=== PATIENT | male | born 1965 | race Caucasian/White ===

== ENCOUNTER 2022-12-16 10:59 | Observation (INO) | payer BC ==
[2022-12-16] MEDS ORDERED: Sodium Chloride 0.9% 300 ML IV ONE (11:06)
[2022-12-16] MEDS ORDERED: Sodium Chloride 0.9% 10 ML Syringe FLUSH PRN ×2 (11:06→17:48)
[2022-12-16] MEDS ORDERED: Aspirin 81 MG Tab.Chew PO ONE (11:11)
[2022-12-16 11:21] LABS: BASOPHILS ABSOLUTE AUTO 0.09 K/uL (0.00-0.10); EOSINOPHILS PERCENT AUTO 4.4 % (0.0-5.4); HEMATOCRIT 38.2 % (38.4-49.7); HEMOGLOBIN 12.7 g/dL (12.9-16.9); IMMATURE GRAN ABSOLUTE AUTO 0.04 K/uL (0.00-0.23); IMMATURE GRAN PERCENT AUTO 0.4 % (0.0-0.7); LYMPHOCYTES ABSOLUTE AUTO 2.74 K/uL (0.8-3.3); MEAN CORPUSCULAR HEMOGLOBIN 30.8 pg (31.6-35.5); MEAN CORPUSCULAR HGB CONC 33.2 g/dL (31.6-35.5); MEAN CORPUSCULAR VOLUME 92.7 fL (81.4-99.0); MONOCYTES ABSOLUTE AUTO 0.71 K/uL (0.20-0.90); MONOCYTES PERCENT AUTO 7.8 % (3.3-12.6); NEUTROPHILS ABSOLUTE AUTO 5.15 K/uL (1.0-7.6); NEUTROPHILS PERCENT AUTO 56.4 % (40.0-78.1); PLATELET COUNT,PLT 378 K/uL (130-375); RED BLOOD CELL COUNT 4.12 M/uL (4.14-5.76); WHITE BLOOD CELL COUNT,WBC 9.1 K/uL (3.2-11.0)
[2022-12-16 11:48] LABS: A/G RATIO 1.1 (1.2-2.2); ALANINE AMINOTRANSFERASE,ALT 46 U/L (12-78); ALBUMIN 3.3 g/dL (3.4-5.0); ALKALINE PHOSPHATASE 117 U/L (46-116); ANION GAP 11.9 mmol/L (5.0-14.0); ASPARTATE AMNIOTRANSFERASE,AST 30 U/L (15-37); BILIRUBIN TOTAL 0.3 mg/dL (0.2-1.0); BLOOD UREA NITROGEN,BUN 11 mg/dL (7-18); CALCIUM 8.1 mg/dL (8.5-10.1); CARBON DIOXIDE,CO2 24 mmol/L (21-32); CHLORIDE,CL 104 mmol/L (100-108); CREATININE 1.2 mg/dL (0.8-1.3); EST CRCL DRUG DOSING (CG) 58.37 mL/min; ESTIMATED GFR 70 mL/min (>60); GLUCOSE RANDOM 153 mg/dL (74-106); PROTEIN TOTAL,TP 6.4 g/dL (6.4-8.2); SODIUM,NA 140 mmol/L (140-148); TROPONIN I HIGH SENSITIVITY 4.9 pg/mL (<=60.3)
[2022-12-16] MEDS ORDERED: Morphine 4 MG/ML Syringe IVPUSH PRN (17:48)
[2022-12-16] MEDS ORDERED: Ondansetron 4 MG/2 ML SDV IV PRN (17:48)
[2022-12-16] MEDS ORDERED: Acetaminophen 325 MG Tab PO PRN (17:48)
[2022-12-16] MEDS ORDERED: Albuterol 0.083% 2.5 MG/3 ML Neb Soln NEB PRN (17:48)
[2022-12-16] MEDS ORDERED: Sennosides/Docusate Sodium 50-8.6 MG Tab PO PRN (17:48)
[2022-12-16] MEDS ORDERED: Nitroglycerin 0.4 MG Tab.SL SL PRN (17:48)
[2022-12-16] MEDS: Pantoprazole 40 MG Tab.CR PO SCH (18:13)
[2022-12-16] MEDS ORDERED: atorvaSTATin 20 MG Tab PO SCH (21:00)
[2022-12-16] MEDS ORDERED: Enoxaparin 40 MG/0.4 ML Syringe SUBCUT SCH (21:00)
[2022-12-17 06:11] LABS: CALCIUM 8.2 mg/dL (8.5-10.1); CREATININE 0.8 mg/dL (0.8-1.3); EST CRCL DRUG DOSING (CG) 87.55 mL/min; POTASSIUM,K 3.9 mmol/L (3.6-5.2); TROPONIN I HIGH SENSITIVITY 10.7 pg/mL (<=60.3)
[2022-12-17 06:12] LABS: ANION GAP 10.9 mmol/L (5.0-14.0)
[2022-12-17] MEDS: Pantoprazole 40 MG Tab.CR PO SCH (08:48)
[2022-12-17] MEDS ORDERED: Aspirin 81 MG Tab.Chew PO SCH ×2 (09:00)
[2022-12-17] MEDS ORDERED: Metoprolol Succinate 25 MG Tab.ER PO SCH (09:00)
[2022-12-17] MEDS ORDERED: Ticagrelor 90 MG Tab PO SCH (09:00)
[2022-12-17] MEDS ORDERED: Lisinopril 2.5 MG Tab PO SCH (09:00)
[2022-12-17] MEDS ORDERED: Metoprolol Succinate 50 MG Tab.ER PO SCH (13:00)
== END 2022-12-17 13:31 | disposition home or self-care (01) ==
LOC: JP.ED 10:59 → JP.ICU 17:06
PROVIDERS: ADMIT Hospitalist; ATTEND Internal Medicine
DX: R07.89 Other chest pain (principal); I25.10 Atherosclerotic heart disease of native coronary artery without angina pectoris; I25.2 Old myocardial infarction; I10 Essential (primary) hypertension; E78.00 Pure hypercholesterolemia, unspecified; F17.210 Nicotine dependence, cigarettes, uncomplicated; Z79.82 Long term (current) use of aspirin; Z95.1 Presence of aortocoronary bypass graft; Z79.899 Other long term (current) drug therapy; Z20.822 Contact with and (suspected) exposure to COVID-19
CPT/HCPCS: 36415; 78452; 80048; 80053; 84484; 85025; 85379; 87635; 93005; 93017; 93018; 96372; 99222; 99238; 99285; A9270; A9500; G0378; J1650; J3490; J7050; 93010; U0002